=== PATIENT | female | born 1975 | race Caucasian/White ===

== ENCOUNTER 2017-01-19 20:42 | Emergency (ER) | payer OTHER | END 2017-01-19 23:20 | disposition home or self-care (01) | LOC: ER 20:42 | DX: J20.9 Acute bronchitis, unspecified (principal); M94.0 Chondrocostal junction syndrome [Tietze]; I11.0 Hypertensive heart disease with heart failure; I50.9 Heart failure, unspecified; E87.6 Hypokalemia; E83.51 Hypocalcemia; F43.10 Post-traumatic stress disorder, unspecified; E05.00 Thyrotoxicosis with diffuse goiter without thyrotoxic crisis or storm; Z90.710 Acquired absence of both cervix and uterus; Z98.51 Tubal ligation status; E89.0 Postprocedural hypothyroidism; Z79.899 Other long term (current) drug therapy; Z88.1 Allergy status to other antibiotic agents | CPT/HCPCS: 36415; 96374; 96375; Q9967 ==